=== PATIENT | male | born 2000 | race Caucasian/White ===

== ENCOUNTER 2022-09-29 11:30 | Outpatient (CLI) | payer OTHER, SELFPAY ==
[2022-09-29 13:58] LABS: Albumin* 4.7 g/dL (3.3-5.0); Chloride* 103 mmol/L (96-114); Potassium* 4.1 mmol/L (3.6-5.1); Sodium* 139 mmol/L (135-149)
[2022-09-29 14:00] LABS: Aspartate Amino Transferase* 52 U/L (12-35); Bilirubin Total* 0.9 mg/dL (0.1-1.5); Carbon Dioxide* 29 mmol/L (20-32); Creatinine* 0.7 mg/dL (0.5-1.5); Estimated Glomerular Filt Rate 134 ml/min; Total Protein* 7.6 g/dL (6.0-8.3)
[2022-09-29 14:01] LABS: Alanine Aminotransferase* 30 U/L (4-50); Alkaline Phosphatase* 56 U/L (40-150); Blood Urea Nitrogen* 19 mg/dL (5-24); Calcium* 9.5 mg/dL (8.4-10.6); Glucose* 87 mg/dL (60-115)
== END 2022-09-29 11:31 | disposition home or self-care (01) ==
PROVIDERS: PCP Family Medicine; Visit Provider Family Medicine
DX: R53.83 Other fatigue (principal)
CPT/HCPCS: 80053; 84443

== ENCOUNTER 2022-10-27 10:14 | Outpatient (CLI) | payer OTHER, SELFPAY | END 2022-10-27 10:15 | disposition home or self-care (01) | LOC: NFLDREF 10-28 01:59 | PROVIDERS: PCP Family Medicine; Referring Provider Family Medicine; Visit Provider Family Medicine | DX: R74.8 Abnormal levels of other serum enzymes (principal) | CPT/HCPCS: 84450; 84460 ==

== ENCOUNTER 2023-01-24 16:01 | Outpatient (CLI) | payer OTHER, SELFPAY | END 2023-01-24 16:02 | disposition home or self-care (01) | LOC: NFLDREF 01-25 11:44 | PROVIDERS: PCP Family Medicine; Referring Provider Family Medicine; Visit Provider Family Medicine | DX: Z11.1 Encounter for screening for respiratory tuberculosis (principal); Y99.2 Volunteer activity | CPT/HCPCS: 86480; 86706 ==